=== PATIENT | male | born 1995 | race Caucasian/White ===

== ENCOUNTER 2022-04-12 08:54 | Emergency (ER) | payer OTHER ==
[2022-04-12] MEDS ORDERED: Sodium Chloride 0.9% 1,000 ML IV ONE (09:18)
[2022-04-12 09:27] LABS: ANION GAP 15.6 mmol/L (5-15); CHLORIDE,CL 106 mmol/L (98-107); ESTIMATED GFR 86 mL/min (>=60); SODIUM,NA 142 mmol/L (136-145)
[2022-04-12 10:09] LABS: CORONAVIRUS COVID-19 NAA POSITIVE (NEGATIVE)
== END 2022-04-12 10:30 | disposition home or self-care (01) ==
LOC: VM.ED 08:54
DX: U07.1 COVID-19 (principal)
CPT/HCPCS: 0240U; 80048; 85025; 96360; 99283; 99283-25; J7030